=== PATIENT | female | born 1995 | race African-American/Black ===

== ENCOUNTER 2020-03-01 10:34 | Observation (INO) | payer OTHER ==
[2020-03-01] VITALS (258 sets, daily range): BP systolic 107–135; BP diastolic 67–90; PULSE 56–79; TEMP 98.2–98.7; O2SAT 94–100
[~2020-03-01] VITALS: Ht 165.1 cm; Wt 132.8 kg
[2020-03-01 11:10] LABS: HEMATOCRIT 40.9 % (37.0-47.0); HEMOGLOBIN 13.5 g/dl (12.5-16.0); MEAN CELL VOLUME 83 fl (80.0-100.0); MEAN CORPUSCULAR HEMOGLOBIN 27 pg (27.0-31.0); MEAN CORPUSCULAR HGB CONC 33 g/dl (33.0-37.0); MEAN PLATELET VOLUME 11.8 fl (7.4-10.4); PLATELET COUNT 182 K/mm3 (130-400); RED BLOOD COUNT 4.93 M/mm3 (4.10-5.30); REDCELL DISTRIBUTION WIDTH-CV 13.3 % (11.5-14.5)
[2020-03-01 11:17] LABS: INR 1.1 (0.8-3.0); PROTHROMBIN TIME 12.3 SECONDS (9.7-12.8)
[2020-03-01] MEDS ORDERED: NEXPLANON68 MG ID (11:20)
[2020-03-01 11:21] LABS: CALCIUM 9.1 mg/dL (8.4-10.2); CREATININE, serum 0.75 (0.52-1.25)
[2020-03-01] MEDS ORDERED: COZAAR 25MG25 MG/TAB PO (16:22)
[2020-03-01] MEDS ORDERED: TOPROL XL 25MG25 MG PO (16:22)
--- NOTE | 2020-03-01 18:11 | NUR ---
Patient still complaining of pain in the right arm with movement and palpation of the medial bicep area. Area soft to palpation, pulses 2+ radial, able to move fingers.
--- NOTE | 2020-03-01 23:07 | NUR ---
Arrived to room 347 via wheelchair. Admission assesment complete. Oriented to room/policy. Med rec updated. Plan of care discussed for pain control/calling for needs/concerns. Verbalizes understanding. Call light in reach. Will monitor.
--- NOTE | 2020-03-02 00:10 | NUR ---
Called with c/o pain to right arm-rating pain 6/10 on pain scale-described as constant ache. Dilaudid given per dr sorto. Will monitor.
--- NOTE | 2020-03-02 03:48 | NUR ---
Rested off an on this shift. Has received one dose of Dilaudid for right arm pain x1. 1/2NS@100ml/hr to left AC IV. Tele report SDYS. Denied nausea/shortness of breath. VS remained stable. Denies needs. Call light in reach. Will monitor.
--- NOTE | 2020-03-02 04:21 | NUR ---
Called with c/o pain to right arm-rating pain 5/10 on pain scale-described as constant ache/throb. Hydrocodone given per dr order. Will continue to monitor.
[2020-03-02 04:30] VITALS: BP 119/64; PULSE 51; TEMP 97.8
--- NOTE | 2020-03-02 07:00 | NUR ---
Bedside shift report received from FREDIS Baxter. Pt in bed resting, assisted up to bathroom, steady gai, will continue to monitor.
[2020-03-02 07:53] VITALS: BP 109/69; PULSE 72; TEMP 98.4
--- NOTE | 2020-03-02 09:12 | NUR ---
Assessment charted. Pt c/o pain to R arm pain at 4/10 at catheter site but when moving pain soots up arm. PRN pain meds given per request. Discussed new meds given this am. IVF to L A/C. Will cotninue to monitor.
[2020-03-02] MEDS ORDERED: NORCO 325 MG-51 TAB PO (11:19)
[2020-03-02] MEDS ORDERED: IBU400 MG PO (11:19)
--- NOTE | 2020-03-02 12:41 | NUR ---
Discharge teaching completed at this time. INT dc'd, tip intact. Pt received scripts, f/u appointment, reviewed discharge packet. Answered all questions. Pt escorted out via w/c by myself, left with all belongings, to drive home, criteria met.
--- NOTE | 2020-03-02 13:57 | NUR ---
Plan: To return home to [place] with Ricardo Assessment: SW met with patient about care. Patient reports that she and her spouse and two children live on [place]. Patient reports that her spouse will provide transportation. Patient reports that she has PCP with [facility] but does not know the PCP's Name. Patient denies having any DME use other than the stint on arm. Patient has a follow-up appointment with Dr. Ochoa in 2 weeks. Denies having a DPOA. Action: Patient reports that she can not obtain her medications due to [facility] being closed. Educated patient on [facility] and the discount list to use as a primary resource. Gave information for three pharmacies. Educated patient on the medication voucher if needed.
== END 2020-03-02 12:45 | disposition home or self-care (01) ==
LOC: COL.CAR 10:34 → SURG 21:29
PROVIDERS: Internal Medicine Cardiovascular Disease; ADMIT Internal Medicine Pulmonary Disease
DX: M79.601 Pain in right arm (principal); D64.9 Anemia, unspecified; Z87.891 Personal history of nicotine dependence; R94.39 Abnormal result of other cardiovascular function study; Z91.018 Allergy to other foods
CPT/HCPCS: 99223-AI; 99239; G0378; G0379; J1170; J1644; J2250; J3010; Q9967